=== PATIENT | female | born 1940 | race Caucasian/White ===

== ENCOUNTER → 2019-02-22 | Outpatient (CLI) | payer MEDICARE, OTHER ==
[~2019-02-22] MED LIST: ANTIVERT12.5 MG PO; ANTIVERT25 MG PO; ASPIR 8181 MG PO; ASPRIN PO; SYNTHROID0.125 MG PO; [UNRECOGNIZED DRUG - REMARK]
== END | disposition home or self-care (01) ==
LOC: RESCLI 02:05
DX: I48.20 Chronic atrial fibrillation, unspecified (principal); F32.9 Major depressive disorder, single episode, unspecified; E03.9 Hypothyroidism, unspecified; E11.630 Type 2 diabetes mellitus with periodontal disease; I10 Essential (primary) hypertension; I25.10 Atherosclerotic heart disease of native coronary artery without angina pectoris; Z79.899 Other long term (current) drug therapy

== ENCOUNTER 2019-05-16 19:22 | Emergency (ER) | payer MEDICARE, OTHER ==
[~2019-05-16] VITALS: Ht 167.6 cm; Wt 104.3 kg
== END 2019-05-16 22:30 | disposition home or self-care (01) ==
LOC: ED 19:22
DX: S20.212A Contusion of left front wall of thorax, initial encounter (principal); I10 Essential (primary) hypertension; I48.91 Unspecified atrial fibrillation; E07.9 Disorder of thyroid, unspecified; Z88.2 Allergy status to sulfonamides; Z79.82 Long term (current) use of aspirin; Z79.899 Other long term (current) drug therapy; V49.88XA Car occupant (driver) (passenger) injured in other specified transport accidents, initial encounter; Y93.89 Activity, other specified; Y92.488 Other paved roadways as the place of occurrence of the external cause; Y99.8 Other external cause status

== ENCOUNTER 2020-10-31 16:34 | Inpatient (IN) | payer MEDICARE, OTHER ==
[~2020-10-31] VITALS: Ht 165.1 cm; Wt 94.3 kg
[~2020-10-31 16:34] MED LIST changes: +CARDIZEM CD120 M2 PO; +GLUCOPHAGE500 M1 PO; +MAGNESIUM OXID400 MG PO; +TOPROL XL50 M1 PO; +XARELTO10 MG PO; +ZESTRIL2.5 MG PO
[2020-10-31 16:39] VITALS: BP 138/73
[2020-10-31 16:59] LABS: BASO # 0.1 10*3/uL (0.0-0.1); BASO % 0.4 % (0.0-1.0); EOS # 0.1 10*3/uL (0.0-0.4); EOS % 1.1 % (1.0-4.0); HEMATOCRIT 28.5 % (37.0-47.0); LYMPH # 1.5 10*3/uL (1.3-4.4); LYMPH % 12.9 % (27.0-41.0); MEAN CELL VOLUME 82.8 fl (81.0-99.0); MEAN CORPUSCULAR HGB 23.8 pg (27.0-31.0); MEAN CORPUSCULAR HGB CONC 28.8 g/dl (33.0-37.0); MONO # 0.8 10*3/uL (0.1-1.0); NEUT # 8.9 10*3/uL (2.3-7.9); NEUT % 78.2 % (47.0-73.0); PLATELET COUNT AUTOMATED 315 10*3/uL (130-400); RED BLOOD COUNT 3.44 10*6/uL (4.10-5.10); RED CELL DISTRI WIDTH 19.5 % (0-14.5); WHITE BLOOD COUNT 11.4 10*3/uL (4.8-10.8)
[2020-10-31 17:15] LABS: ALBUMIN 2.9 gm/dl (3.1-4.5); ALKALINE PHOSPHATASE 75 U/L (45-117); BUN 17 mg/dl (7-24); CHLORIDE 101 mmol/L (98-107); CREATININE 1.25 mg/dL (0.55-1.02); LIPASE 82 U/L (73-393); POTASSIUM 3.3 mmol/L (3.5-5.1); SGOT/AST 11 IU/L (3-35); SGPT/ALT 9 U/L (12-78); SODIUM 136 mmol/L (136-145); TOTAL PROTEIN 7.6 gm/dL (6.4-8.2)
[2020-10-31 17:18] LABS: TROPONIN I < 0.015 ng/ml (<0.045)
[2020-10-31 17:38] LABS: BILIRUBIN Negative (Negative); BLOOD Negative (Negative); CLARITY Clear (Clear); COLOR Yellow (Yellow); GLUCOSE Negative (Negative); KETONE Negative (Negative); LEUKO ESTERASE Trace (Negative); NITRITE Negative (Negative); PH 7.5 (4.5-8.0); UROBILINOGEN 0.2 E.U./dl (0.0-1.0)
[2020-10-31 17:55] LABS: HYALINE CAST 0-2
[2020-10-31 18:45] VITALS: BP 133/71
[2020-10-31] MEDS ORDERED: Magnesium Oxid400 MG PO (18:54)
[2020-10-31 20:00] VITALS: BP 122/51
[2020-11-01] VITALS: BP 128/68
[2020-11-01 06:03] LABS: ALBUMIN 2.7 gm/dl (3.1-4.5); BASO # 0.1 10*3/uL (0.0-0.1); BASO % 0.4 % (0.0-1.0); CREATININE 1.19 mg/dL (0.55-1.02); EOS # 0.2 10*3/uL (0.0-0.4); LYMPH # 2.3 10*3/uL (1.3-4.4); LYMPH % 20.8 % (27.0-41.0); MEAN CORPUSCULAR HGB CONC 29.2 g/dl (33.0-37.0); MEAN PLATELET VOLUME 10.5 fl (9.6-12.3); MONO # 0.9 10*3/uL (0.1-1.0); MONO % 7.6 % (3.0-9.0); NEUT # 7.7 10*3/uL (2.3-7.9); NEUT % 68.8 % (47.0-73.0); PLATELET COUNT AUTOMATED 303 10*3/uL (130-400); POTASSIUM 3.4 mmol/L (3.5-5.1); RED BLOOD COUNT 3.17 10*6/uL (4.10-5.10); RED CELL DISTRI WIDTH 19.7 % (0-14.5); WHITE BLOOD COUNT 11.2 10*3/uL (4.8-10.8)
[2020-11-01 06:06] LABS: INTERNATIONAL NORM RATIO 1.2 (2.0-3.5)
[2020-11-01 06:09] LABS: THYROID STIM HORMONE (HS) 1.22 uIU/ml (0.358-4.75)
[2020-11-01 08:00] VITALS: BP 118/72
[2020-11-01 12:00] VITALS: BP 112/73
[2020-11-01 16:05] VITALS: BP 119/55
[2020-11-01 20:00] VITALS: BP 125/55
[2020-11-02] VITALS: BP 143/63
[2020-11-02 06:05] LABS: BASO % 0.4 % (0.0-1.0); EOS # 0.3 10*3/uL (0.0-0.4); EOS % 2.7 % (1.0-4.0); HEMATOCRIT 25.3 % (37.0-47.0); LYMPH # 2.2 10*3/uL (1.3-4.4); LYMPH % 21.6 % (27.0-41.0); MEAN CELL VOLUME 82.1 fl (81.0-99.0); MEAN CORPUSCULAR HGB 23.7 pg (27.0-31.0); MEAN CORPUSCULAR HGB CONC 28.9 g/dl (33.0-37.0); MEAN PLATELET VOLUME 9.9 fl (9.6-12.3); MONO # 0.9 10*3/uL (0.1-1.0); MONO % 8.7 % (3.0-9.0); NEUT # 6.7 10*3/uL (2.3-7.9); NEUT % 66.3 % (47.0-73.0); PLATELET COUNT AUTOMATED 297 10*3/uL (130-400); RED BLOOD COUNT 3.08 10*6/uL (4.10-5.10); RED CELL DISTRI WIDTH 19.9 % (0-14.5); WHITE BLOOD COUNT 10.1 10*3/uL (4.8-10.8)
[2020-11-02 06:24] LABS: CREATININE 1.46 mg/dL (0.55-1.02); POTASSIUM 3.3 mmol/L (3.5-5.1)
[2020-11-02 08:00] VITALS: BP 144/72
[2020-11-02 12:00] VITALS: BP 100/65
[2020-11-02 16:00] VITALS: BP 117/51
[2020-11-02 20:00] VITALS: BP 117/52
[2020-11-03] VITALS: BP 141/58
[2020-11-03 06:09] LABS: BASO # 0.1 10*3/uL (0.0-0.1); BASO % 0.6 % (0.0-1.0); EOS # 0.4 10*3/uL (0.0-0.4); EOS % 3.1 % (1.0-4.0); HEMATOCRIT 27.8 % (37.0-47.0); LYMPH # 3.3 10*3/uL (1.3-4.4); LYMPH % 26.3 % (27.0-41.0); MEAN CELL VOLUME 82.2 fl (81.0-99.0); MEAN CORPUSCULAR HGB 23.7 pg (27.0-31.0); MEAN CORPUSCULAR HGB CONC 28.8 g/dl (33.0-37.0); MEAN PLATELET VOLUME 10.1 fl (9.6-12.3); MONO % 8.1 % (3.0-9.0); NEUT # 7.6 10*3/uL (2.3-7.9); NEUT % 61.3 % (47.0-73.0); PLATELET COUNT AUTOMATED 375 10*3/uL (130-400); RED BLOOD COUNT 3.38 10*6/uL (4.10-5.10); RED CELL DISTRI WIDTH 19.9 % (0-14.5); WHITE BLOOD COUNT 12.4 10*3/uL (4.8-10.8)
[2020-11-03 06:36] LABS: CREATININE 1.24 mg/dL (0.55-1.02); POTASSIUM 3.7 mmol/L (3.5-5.1)
[2020-11-03 08:00] VITALS: BP 127/59
[2020-11-03 12:00] VITALS: BP 122/60
[2020-11-03 16:00] VITALS: BP 99/69
[2020-11-03 20:00] VITALS: BP 131/63
[2020-11-04] VITALS: BP 123/66
[2020-11-04 06:09] LABS: CREATININE 1.1 mg/dL (0.55-1.02); POTASSIUM 4.1 mmol/L (3.5-5.1)
[2020-11-04 06:48] LABS: BASO # 0.1 10*3/uL (0.0-0.1); BASO % 0.5 % (0.0-1.0); EOS # 0.3 10*3/uL (0.0-0.4); EOS % 3.2 % (1.0-4.0); HEMATOCRIT 25.9 % (37.0-47.0); LYMPH # 2.4 10*3/uL (1.3-4.4); LYMPH % 22.5 % (27.0-41.0); MEAN CELL VOLUME 82.7 fl (81.0-99.0); MEAN CORPUSCULAR HGB 23.6 pg (27.0-31.0); MEAN CORPUSCULAR HGB CONC 28.6 g/dl (33.0-37.0); MEAN PLATELET VOLUME 10.1 fl (9.6-12.3); NEUT # 6.8 10*3/uL (2.3-7.9); NEUT % 64.3 % (47.0-73.0); PLATELET COUNT AUTOMATED 354 10*3/uL (130-400); RED BLOOD COUNT 3.13 10*6/uL (4.10-5.10); RED CELL DISTRI WIDTH 20.1 % (0-14.5); WHITE BLOOD COUNT 10.5 10*3/uL (4.8-10.8)
[2020-11-04 08:00] VITALS: BP 110/70
[2020-11-04] MEDS ORDERED: XARELTO15 M1 PO (11:11)
[2020-11-04] MEDS ORDERED: LASIX40 MG PO (11:11)
[2020-11-04] MEDS ORDERED: GOOD NEIGHBOR M25 M1 PO (11:12)
[2020-11-04 12:00] VITALS: BP 106/56
== END 2020-11-04 14:37 | DRG 291 ==
LOC: ED 16:34 → 5E 17:36 → EDHOLD 17:36 → 5E 18:29
PROVIDERS: Emergency Medicine; Hospitalist; Student in an Organized Health Care Education/Training Program; ADMIT Internal Medicine; ATTEND Internal Medicine
DX: I50.33 Acute on chronic diastolic (congestive) heart failure (principal); J96.22 Acute and chronic respiratory failure with hypercapnia; J96.21 Acute and chronic respiratory failure with hypoxia; E44.0 Moderate protein-calorie malnutrition; N17.9 Acute kidney failure, unspecified; N18.32 Chronic kidney disease, stage 3b; D50.9 Iron deficiency anemia, unspecified; I48.0 Paroxysmal atrial fibrillation; E03.9 Hypothyroidism, unspecified; Z20.822 Contact with and (suspected) exposure to COVID-19; Z68.34 Body mass index [BMI] 34.0-34.9, adult; E87.6 Hypokalemia; E11.22 Type 2 diabetes mellitus with diabetic chronic kidney disease; F41.9 Anxiety disorder, unspecified; Z88.2 Allergy status to sulfonamides; Z79.899 Other long term (current) drug therapy; Z79.82 Long term (current) use of aspirin; Z90.710 Acquired absence of both cervix and uterus; Z90.49 Acquired absence of other specified parts of digestive tract; Z87.891 Personal history of nicotine dependence; Z80.1 Family history of malignant neoplasm of trachea, bronchus and lung; Z82.49 Family history of ischemic heart disease and other diseases of the circulatory system; E11.65 Type 2 diabetes mellitus with hyperglycemia

== ENCOUNTER → 2020-11-13 | Outpatient (CLI) | payer MEDICARE, OTHER ==
[~2020-11-13] MED LIST changes: +GOOD NEIGHBOR M25 M1 PO; +LASIX40 MG PO; +Magnesium Oxid400 MG PO; +XARELTO15 M1 PO
[2020-11-13 08:49] VITALS: BP 87/37
[2020-11-13 09:24] VITALS: BP 90/44
[2020-11-13 10:01] VITALS: BP 88/43
[2020-11-13 10:46] VITALS: BP 102/55
[2020-11-13 11:46] VITALS: BP 90/38
[2020-11-13 12:25] VITALS: BP 92/46
== END | disposition home or self-care (01) ==
LOC: TRNFUSION 01:02
PROVIDERS: ATTEND Student in an Organized Health Care Education/Training Program
DX: D64.9 Anemia, unspecified (principal); E07.9 Disorder of thyroid, unspecified; I10 Essential (primary) hypertension; E11.9 Type 2 diabetes mellitus without complications; I48.91 Unspecified atrial fibrillation; Z87.891 Personal history of nicotine dependence

== ENCOUNTER → 2020-11-18 | Outpatient (CLI) | payer MEDICARE, OTHER ==
[2020-11-18] VITALS (7 sets, daily range): BP systolic 96–123; BP diastolic 36–68
== END | disposition home or self-care (01) ==
LOC: TRNFUSION 13:07
PROVIDERS: ATTEND Internal Medicine
DX: D64.9 Anemia, unspecified (principal); I48.91 Unspecified atrial fibrillation; E03.9 Hypothyroidism, unspecified; F41.9 Anxiety disorder, unspecified; I13.0 Hypertensive heart and chronic kidney disease with heart failure and stage 1 through stage 4 chronic kidney disease, or unspecified chronic kidney disease; E11.22 Type 2 diabetes mellitus with diabetic chronic kidney disease; I50.33 Acute on chronic diastolic (congestive) heart failure; N18.30 Chronic kidney disease, stage 3 unspecified; Z87.891 Personal history of nicotine dependence

== ENCOUNTER → 2020-12-09 | Day surgery (SDC) | payer MEDICARE, OTHER ==
[~2020-12-09] VITALS: Ht 165.1 cm; Wt 95.3 kg
[2020-12-09 08:37] VITALS: BP 134/66
[2020-12-09 09:23] VITALS: BP 86/41
[2020-12-09 09:38] VITALS: BP 106/52
[2020-12-09 09:58] VITALS: BP 106/50
== END | disposition home or self-care (01) ==
LOC: SDC 12-05 08:45
PROVIDERS: ATTEND Surgery
DX: K62.5 Hemorrhage of anus and rectum (principal); D12.2 Benign neoplasm of ascending colon; D12.8 Benign neoplasm of rectum; K57.30 Diverticulosis of large intestine without perforation or abscess without bleeding; K29.50 Unspecified chronic gastritis without bleeding; D64.9 Anemia, unspecified; I12.9 Hypertensive chronic kidney disease with stage 1 through stage 4 chronic kidney disease, or unspecified chronic kidney disease; E11.22 Type 2 diabetes mellitus with diabetic chronic kidney disease; N18.30 Chronic kidney disease, stage 3 unspecified; I25.10 Atherosclerotic heart disease of native coronary artery without angina pectoris; I48.91 Unspecified atrial fibrillation; F41.9 Anxiety disorder, unspecified; Z88.2 Allergy status to sulfonamides; F32.9 Major depressive disorder, single episode, unspecified; E03.9 Hypothyroidism, unspecified; Z90.89 Acquired absence of other organs; Z98.890 Other specified postprocedural states; Z79.899 Other long term (current) drug therapy

== ENCOUNTER → 2021-02-25 | Outpatient (CLI) | payer MEDICARE, OTHER ==
[2021-02-24 16:54] LABS: HEMATOCRIT 23.2 % (37.0-47.0); MEAN CELL VOLUME 96.7 fl (81.0-99.0); MEAN CORPUSCULAR HGB 29.6 pg (27.0-31.0); MEAN CORPUSCULAR HGB CONC 30.6 g/dl (33.0-37.0); MEAN PLATELET VOLUME 9.1 fl (9.6-12.3); RED BLOOD COUNT 2.4 10*6/uL (4.10-5.10); RED CELL DISTRI WIDTH 13.7 % (0-14.5); WHITE BLOOD COUNT 10.4 10*3/uL (4.8-10.8)
[2021-02-25] VITALS (11 sets, daily range): BP systolic 99–116; BP diastolic 42–67
== END | disposition home or self-care (01) ==
LOC: TRNFUSION 01:21
PROVIDERS: ATTEND Family Medicine
DX: D50.8 Other iron deficiency anemias (principal); K92.9 Disease of digestive system, unspecified; I10 Essential (primary) hypertension; J44.9 Chronic obstructive pulmonary disease, unspecified; E07.9 Disorder of thyroid, unspecified; F32.9 Major depressive disorder, single episode, unspecified; I25.10 Atherosclerotic heart disease of native coronary artery without angina pectoris; I48.91 Unspecified atrial fibrillation

== ENCOUNTER → 2021-03-07 | Outpatient (CLI) | payer MEDICARE, OTHER ==
[2021-03-07 17:19] LABS: FREE T4 0.59 ng/dl (0.76-1.46)
== END | disposition home or self-care (01) ==
LOC: RESCLI 02:33
PROVIDERS: Internal Medicine; ATTEND Internal Medicine
DX: I48.91 Unspecified atrial fibrillation (principal); I11.0 Hypertensive heart disease with heart failure; I50.30 Unspecified diastolic (congestive) heart failure; E03.9 Hypothyroidism, unspecified; K57.30 Diverticulosis of large intestine without perforation or abscess without bleeding; D50.0 Iron deficiency anemia secondary to blood loss (chronic); Z79.899 Other long term (current) drug therapy

== ENCOUNTER 2021-09-02 13:00 | Inpatient (IN) | payer MEDICARE, OTHER ==
[2021-09-02] VITALS (22 sets, daily range): BP systolic 110–153; BP diastolic 35–96
[~2021-09-02] VITALS: Ht 165.1 cm; Wt 98.9 kg
[~2021-09-02 13:00] MED LIST changes: +Carafate1 GM PO; +PROTONIX40 MG PO; +TYLENOL EXTRA500 MG PO
[2021-09-02 13:32] LABS: MEAN CELL VOLUME 75.1 fl (81.0-99.0); MEAN CORPUSCULAR HGB 20.4 pg (27.0-31.0); MEAN CORPUSCULAR HGB CONC 27.1 g/dl (33.0-37.0); MEAN PLATELET VOLUME 9.6 fl (9.6-12.3); NUCLEATED RED BLOOD CELL 0.4 % (0.0-0.0); PLATELET COUNT AUTOMATED 261 10*3/uL (130-400); RED BLOOD COUNT 2.65 10*6/uL (4.10-5.10); RED CELL DISTRI WIDTH 19.8 % (0-14.5); WHITE BLOOD COUNT 8.4 10*3/uL (4.8-10.8)
[2021-09-02 13:33] LABS: MANUAL DIFF REFLEX YES
[2021-09-02 13:35] LABS: HEMATOCRIT 19.9 % (37.0-47.0)
[2021-09-02 13:41] LABS: ACT PARTIAL THROMBO TIME 23.6 SECONDS (20.0-32.1); INTERNATIONAL NORM RATIO 1.1 (2.0-3.5)
[2021-09-02 13:50] LABS: MICROCYTOSIS SLIGHT; OVALOCYTES FEW; PLATELET SUFFICIENCY NORMAL (NORMAL); POLYCHROMASIA SLIGHT; TOTAL CELLS COUNTED 100 #CELLS
[2021-09-02 13:51] LABS: SCHISTOCYTES FEW; TARGET CELLS FEW
[2021-09-02 13:53] LABS: CREATININE 1.49 mg/dL (0.55-1.02); POTASSIUM 3.9 mmol/L (3.5-5.1); TOTAL PROTEIN 7.3 gm/dL (6.4-8.2)
[2021-09-02] MEDS ORDERED: LASIX20 MG PO (18:00)
[2021-09-02] MEDS ORDERED: SYNTHROID137 MCG PO (18:01)
[2021-09-02] MEDS ORDERED: VITAMIN D31250 MCG PO (18:03)
[2021-09-02] MEDS ORDERED: CARAFATE1 G1 PO (18:03)
[2021-09-03] VITALS (9 sets, daily range): BP systolic 107–134; BP diastolic 40–86
[2021-09-03 00:50] LABS: BASO # 0.1 10*3/uL (0.0-0.1); BASO % 0.6 % (0.0-1.0); EOS # 0.2 10*3/uL (0.0-0.4); HEMATOCRIT 25.5 % (37.0-47.0); LYMPH # 1.6 10*3/uL (1.3-4.4); LYMPH % 14.8 % (27.0-41.0); MEAN CORPUSCULAR HGB 22.1 pg (27.0-31.0); MEAN CORPUSCULAR HGB CONC 29.4 g/dl (33.0-37.0); MEAN PLATELET VOLUME 9.5 fl (9.6-12.3); MONO # 1.5 10*3/uL (0.1-1.0); MONO % 13.9 % (3.0-9.0); NEUT # 7.2 10*3/uL (2.3-7.9); NEUT % 67.9 % (47.0-73.0); NUCLEATED RED BLOOD CELL 0.3 % (0.0-0.0); PLATELET COUNT AUTOMATED 241 10*3/uL (130-400); WHITE BLOOD COUNT 10.6 10*3/uL (4.8-10.8)
[2021-09-03 05:38] LABS: CREATININE 1.33 mg/dL (0.55-1.02); POTASSIUM 3.5 mmol/L (3.5-5.1); TOTAL PROTEIN 7.3 gm/dL (6.4-8.2)
[2021-09-03 05:53] LABS: THYROID STIM HORMONE (HS) 0.668 uIU/ml (0.358-4.75)
[2021-09-03 06:46] LABS: ACT PARTIAL THROMBO TIME 25.1 SECONDS (20.0-32.1); INTERNATIONAL NORM RATIO 1.1 (2.0-3.5)
[2021-09-03 06:54] LABS: BASO # 0.1 10*3/uL (0.0-0.1); BASO % 0.5 % (0.0-1.0); EOS # 0.3 10*3/uL (0.0-0.4); HEMATOCRIT 26.7 % (37.0-47.0); LYMPH # 2.1 10*3/uL (1.3-4.4); LYMPH % 20.2 % (27.0-41.0); MEAN CELL VOLUME 75.9 fl (81.0-99.0); MEAN CORPUSCULAR HGB 21.6 pg (27.0-31.0); MEAN CORPUSCULAR HGB CONC 28.5 g/dl (33.0-37.0); MEAN PLATELET VOLUME 10.1 fl (9.6-12.3); MONO # 1.2 10*3/uL (0.1-1.0); NEUT # 6.8 10*3/uL (2.3-7.9); NEUT % 64.4 % (47.0-73.0); NUCLEATED RED BLOOD CELL 0.4 % (0.0-0.0); PLATELET COUNT AUTOMATED 259 10*3/uL (130-400); RED BLOOD COUNT 3.52 10*6/uL (4.10-5.10); WHITE BLOOD COUNT 10.6 10*3/uL (4.8-10.8)
[2021-09-03 17:39] LABS: BASO % 0.4 % (0.0-1.0); EOS # 0.3 10*3/uL (0.0-0.4); EOS % 3.3 % (1.0-4.0); HEMATOCRIT 26.3 % (37.0-47.0); LYMPH # 1.1 10*3/uL (1.3-4.4); LYMPH % 12.2 % (27.0-41.0); MEAN CELL VOLUME 76.2 fl (81.0-99.0); MEAN CORPUSCULAR HGB CONC 28.9 g/dl (33.0-37.0); MEAN PLATELET VOLUME 9.4 fl (9.6-12.3); MONO # 0.9 10*3/uL (0.1-1.0); MONO % 9.9 % (3.0-9.0); NEUT # 6.6 10*3/uL (2.3-7.9); NEUT % 73.8 % (47.0-73.0); NUCLEATED RED BLOOD CELL 0.3 % (0.0-0.0); PLATELET COUNT AUTOMATED 241 10*3/uL (130-400); RED BLOOD COUNT 3.45 10*6/uL (4.10-5.10); RED CELL DISTRI WIDTH 19.3 % (0-14.5)
[2021-09-04] VITALS (17 sets, daily range): BP systolic 77–134; BP diastolic 45–71
[2021-09-04 05:52] LABS: CREATININE 1.26 mg/dL (0.55-1.02); POTASSIUM 2.8 mmol/L (3.5-5.1)
[2021-09-04 06:00] LABS: BASO % 0.4 % (0.0-1.0); EOS # 0.4 10*3/uL (0.0-0.4); EOS % 4.1 % (1.0-4.0); HEMATOCRIT 25.4 % (37.0-47.0); LYMPH # 1.6 10*3/uL (1.3-4.4); LYMPH % 17.4 % (27.0-41.0); MEAN CELL VOLUME 75.8 fl (81.0-99.0); MEAN CORPUSCULAR HGB 21.5 pg (27.0-31.0); MEAN CORPUSCULAR HGB CONC 28.3 g/dl (33.0-37.0); MEAN PLATELET VOLUME 9.8 fl (9.6-12.3); MONO % 10.9 % (3.0-9.0); NEUT # 6.1 10*3/uL (2.3-7.9); NEUT % 66.7 % (47.0-73.0); NUCLEATED RED BLOOD CELL 0.2 % (0.0-0.0); PLATELET COUNT AUTOMATED 252 10*3/uL (130-400); RED BLOOD COUNT 3.35 10*6/uL (4.10-5.10); RED CELL DISTRI WIDTH 19.9 % (0-14.5); WHITE BLOOD COUNT 9.2 10*3/uL (4.8-10.8)
[2021-09-04 16:05] LABS: CREATININE 1.62 mg/dL (0.55-1.02); POTASSIUM 3.3 mmol/L (3.5-5.1)
[2021-09-04 16:30] LABS: BASO % 0.2 % (0.0-1.0); EOS # 0.1 10*3/uL (0.0-0.4); EOS % 0.5 % (1.0-4.0); HEMATOCRIT 31.8 % (37.0-47.0); LYMPH # 0.9 10*3/uL (1.3-4.4); LYMPH % 5.9 % (27.0-41.0); MEAN CORPUSCULAR HGB 22.9 pg (27.0-31.0); MEAN CORPUSCULAR HGB CONC 28.9 g/dl (33.0-37.0); MEAN PLATELET VOLUME 9.6 fl (9.6-12.3); MONO # 1.1 10*3/uL (0.1-1.0); MONO % 7.5 % (3.0-9.0); NEUT # 12.4 10*3/uL (2.3-7.9); NEUT % 85.3 % (47.0-73.0); PLATELET COUNT AUTOMATED 261 10*3/uL (130-400); RED BLOOD COUNT 4.02 10*6/uL (4.10-5.10); RED CELL DISTRI WIDTH 20.1 % (0-14.5); WHITE BLOOD COUNT 14.5 10*3/uL (4.8-10.8)
[2021-09-04 16:41] LABS: MEAN CELL VOLUME 79.1 fl (81.0-99.0)
[2021-09-04 16:56] LABS: CREATININE 1.64 mg/dL (0.55-1.02); POTASSIUM 3.5 mmol/L (3.5-5.1)
[2021-09-05] VITALS (9 sets, daily range): BP systolic 93–131; BP diastolic 44–57
[2021-09-05 05:42] LABS: CREATININE 2.12 mg/dL (0.55-1.02); POTASSIUM 3.5 mmol/L (3.5-5.1)
[2021-09-05 06:06] LABS: BASO % 0.2 % (0.0-1.0); EOS # 0.1 10*3/uL (0.0-0.4); EOS % 0.5 % (1.0-4.0); HEMATOCRIT 29.8 % (37.0-47.0); LYMPH # 1.2 10*3/uL (1.3-4.4); LYMPH % 7.7 % (27.0-41.0); MEAN CELL VOLUME 80.3 fl (81.0-99.0); MEAN CORPUSCULAR HGB 23.2 pg (27.0-31.0); MEAN CORPUSCULAR HGB CONC 28.9 g/dl (33.0-37.0); MEAN PLATELET VOLUME 10.4 fl (9.6-12.3); MONO # 1.5 10*3/uL (0.1-1.0); MONO % 9.7 % (3.0-9.0); NEUT # 12.1 10*3/uL (2.3-7.9); NEUT % 81.2 % (47.0-73.0); PLATELET COUNT AUTOMATED 201 10*3/uL (130-400); RED BLOOD COUNT 3.71 10*6/uL (4.10-5.10); RED CELL DISTRI WIDTH 20.6 % (0-14.5)
[2021-09-06] VITALS: BP 121/91
[2021-09-06 06:36] LABS: POTASSIUM 3.8 mmol/L (3.5-5.1)
[2021-09-06 06:39] LABS: CREATININE 1.89 mg/dL (0.55-1.02)
[2021-09-06 07:03] LABS: HEMATOCRIT 28.5 % (37.0-47.0); MEAN CELL VOLUME 80.3 fl (81.0-99.0); MEAN CORPUSCULAR HGB 22.8 pg (27.0-31.0); MEAN CORPUSCULAR HGB CONC 28.4 g/dl (33.0-37.0); MEAN PLATELET VOLUME 9.4 fl (9.6-12.3); PLATELET COUNT AUTOMATED 222 10*3/uL (130-400); RED BLOOD COUNT 3.55 10*6/uL (4.10-5.10); RED CELL DISTRI WIDTH 21.8 % (0-14.5); WHITE BLOOD COUNT 15.6 10*3/uL (4.8-10.8)
[2021-09-06 07:06] LABS: MANUAL DIFF REFLEX YES
[2021-09-06 07:35] LABS: BASOPHILS 1 % (0-1); PLATELET SUFFICIENCY NORMAL (NORMAL); POLYCHROMASIA SLIGHT; ROULEAUX SLIGHT; TOTAL CELLS COUNTED 100 #CELLS
[2021-09-06 07:36] LABS: MICROCYTOSIS SLIGHT; OVALOCYTES FEW; TARGET CELLS FEW
[2021-09-06 08:00] VITALS: BP 100/58
[2021-09-06 12:00] VITALS: BP 102/57
[2021-09-06 16:00] VITALS: BP 101/53
[2021-09-06 20:00] VITALS: BP 116/46
[2021-09-07] VITALS: BP 120/46
[2021-09-07 05:58] LABS: CREATININE 1.74 mg/dL (0.55-1.02); POTASSIUM 3.4 mmol/L (3.5-5.1)
[2021-09-07 06:34] LABS: BASO % 0.2 % (0.0-1.0); EOS # 0.3 10*3/uL (0.0-0.4); HEMATOCRIT 28.5 % (37.0-47.0); LYMPH # 1.8 10*3/uL (1.3-4.4); LYMPH % 14.1 % (27.0-41.0); MEAN CELL VOLUME 79.2 fl (81.0-99.0); MEAN CORPUSCULAR HGB 23.1 pg (27.0-31.0); MEAN CORPUSCULAR HGB CONC 29.1 g/dl (33.0-37.0); MEAN PLATELET VOLUME 9.7 fl (9.6-12.3); MONO # 1.2 10*3/uL (0.1-1.0); MONO % 9.6 % (3.0-9.0); NEUT # 9.3 10*3/uL (2.3-7.9); NEUT % 73.5 % (47.0-73.0); PLATELET COUNT AUTOMATED 263 10*3/uL (130-400); RED CELL DISTRI WIDTH 22.5 % (0-14.5); WHITE BLOOD COUNT 12.7 10*3/uL (4.8-10.8)
[2021-09-07 08:00] VITALS: BP 104/40
[2021-09-07 12:00] VITALS: BP 98/57
[2021-09-07 16:00] VITALS: BP 98/40
[2021-09-07 20:00] VITALS: BP 104/49
[2021-09-08] VITALS: BP 108/57
[2021-09-08 05:26] LABS: CREATININE 1.38 mg/dL (0.55-1.02); POTASSIUM 3.8 mmol/L (3.5-5.1)
[2021-09-08 06:41] LABS: BASO % 0.3 % (0.0-1.0); EOS # 0.4 10*3/uL (0.0-0.4); EOS % 3.2 % (1.0-4.0); LYMPH # 1.3 10*3/uL (1.3-4.4); LYMPH % 11.2 % (27.0-41.0); MEAN CELL VOLUME 81.2 fl (81.0-99.0); MEAN CORPUSCULAR HGB 23.3 pg (27.0-31.0); MEAN CORPUSCULAR HGB CONC 28.7 g/dl (33.0-37.0); MEAN PLATELET VOLUME 9.9 fl (9.6-12.3); MONO # 1.3 10*3/uL (0.1-1.0); MONO % 11.4 % (3.0-9.0); NEUT # 8.6 10*3/uL (2.3-7.9); NEUT % 73.2 % (47.0-73.0); PLATELET COUNT AUTOMATED 315 10*3/uL (130-400); RED BLOOD COUNT 3.82 10*6/uL (4.10-5.10); WHITE BLOOD COUNT 11.7 10*3/uL (4.8-10.8)
[2021-09-08 12:00] VITALS: BP 124/57
[2021-09-08 16:00] VITALS: BP 94/64
[2021-09-08 20:00] VITALS: BP 131/52
[2021-09-09] VITALS (65 sets, daily range): BP systolic 70–131; BP diastolic 29–70
[2021-09-09 05:24] LABS: CREATININE 1.59 mg/dL (0.55-1.02); POTASSIUM 3.6 mmol/L (3.5-5.1)
[2021-09-09 05:55] LABS: HEMATOCRIT 35.2 % (37.0-47.0); MEAN CELL VOLUME 79.3 fl (81.0-99.0); MEAN CORPUSCULAR HGB 22.5 pg (27.0-31.0); MEAN CORPUSCULAR HGB CONC 28.4 g/dl (33.0-37.0); MEAN PLATELET VOLUME 9.9 fl (9.6-12.3); PLATELET COUNT AUTOMATED 379 10*3/uL (130-400); RED BLOOD COUNT 4.44 10*6/uL (4.10-5.10); RED CELL DISTRI WIDTH 23.8 % (0-14.5); WHITE BLOOD COUNT 7.1 10*3/uL (4.8-10.8)
[2021-09-09 06:08] LABS: MANUAL DIFF REFLEX YES
[2021-09-09 06:31] LABS: TOTAL CELLS COUNTED 100 #CELLS
[2021-09-09 06:32] LABS: MICROCYTOSIS SLIGHT; OVALOCYTES FEW; PLATELET SUFFICIENCY NORMAL (NORMAL)
[2021-09-09 07:17] LABS: ABG BASE EXCESS 1.4 mmol/L (-2.0-2.0); ARTERIAL BLOOD GAS PH 7.394 (7.35-7.45); ARTERIAL BLOOD GAS PO2 178.6 (80-90)
[2021-09-09 08:46] LABS: BILIRUBIN Negative (Negative); BLOOD Negative (Negative); CLARITY Clear (Clear); COLOR Yellow (Yellow); GLUCOSE Negative (Negative); KETONE Negative (Negative); LEUKO ESTERASE Negative (Negative); NITRITE Negative (Negative); PH 5.5 (4.5-8.0); SPECIFIC GRAVITY 1.015 (1.001-1.030)
[2021-09-09 08:55] LABS: BACTERIA 1+; RBC 0-2 rbc/hpf (0-2)
[2021-09-09 13:03] LABS: ABG BASE EXCESS 0.1 mmol/L (-2.0-2.0); ARTERIAL BLOOD GAS PH 7.348 (7.35-7.45); ARTERIAL BLOOD GAS PO2 45.4 (80-90)
[2021-09-10] VITALS (94 sets, daily range): BP systolic 64–153; BP diastolic 23–63
[2021-09-10 05:17] LABS: CREATININE 1.63 mg/dL (0.55-1.02); POTASSIUM 2.9 mmol/L (3.5-5.1)
[2021-09-10 06:10] LABS: HEMATOCRIT 29.3 % (37.0-47.0); MEAN CELL VOLUME 79.2 fl (81.0-99.0); MEAN PLATELET VOLUME 10.3 fl (9.6-12.3); PLATELET COUNT AUTOMATED 437 10*3/uL (130-400); RED CELL DISTRI WIDTH 23.4 % (0-14.5); WHITE BLOOD COUNT 19.5 10*3/uL (4.8-10.8)
[2021-09-10 06:27] LABS: MANUAL DIFF REFLEX YES
[2021-09-10 07:24] LABS: DOHLE BODIES FEW; POLYCHROMASIA SLIGHT; TOTAL CELLS COUNTED 100 #CELLS; TOXIC GRANULATION SLIGHT
[2021-09-10 07:25] LABS: BURR CELLS FEW; PLATELET SUFFICIENCY HIGH (NORMAL); SCHISTOCYTES FEW; TARGET CELLS FEW
[2021-09-10 09:03] LABS: ABG BASE EXCESS 3.2 mmol/L (-2.0-2.0); ARTERIAL BLOOD GAS PH 7.408 (7.35-7.45); ARTERIAL BLOOD GAS PO2 106.4 (80-90)
[2021-09-11] VITALS (65 sets, daily range): BP systolic 93–143; BP diastolic 30–75
[2021-09-11 05:21] LABS: CREATININE 1.17 mg/dL (0.55-1.02); POTASSIUM 2.9 mmol/L (3.5-5.1)
[2021-09-11 07:09] LABS: HEMATOCRIT 28.7 % (37.0-47.0); MEAN CORPUSCULAR HGB 23.1 pg (27.0-31.0); MEAN CORPUSCULAR HGB CONC 27.9 g/dl (33.0-37.0); MEAN PLATELET VOLUME 10.3 fl (9.6-12.3); NUCLEATED RED BLOOD CELL 0.2 % (0.0-0.0); PLATELET COUNT AUTOMATED 384 10*3/uL (130-400); RED BLOOD COUNT 3.46 10*6/uL (4.10-5.10); RED CELL DISTRI WIDTH 22.8 % (0-14.5); WHITE BLOOD COUNT 22.3 10*3/uL (4.8-10.8)
[2021-09-11 07:19] LABS: MEAN CELL VOLUME 82.9 fl (81.0-99.0)
[2021-09-11 07:21] LABS: MANUAL DIFF REFLEX YES
[2021-09-11 07:47] LABS: BURR CELLS FEW; OVALOCYTES FEW; PLATELET SUFFICIENCY NORMAL (NORMAL); POLYCHROMASIA SLIGHT; SCHISTOCYTES FEW; TOTAL CELLS COUNTED 100 #CELLS; TOXIC GRANULATION SLIGHT
[2021-09-12] VITALS: BP 117/51
[2021-09-12 04:00] VITALS: BP 124/49
[2021-09-12 04:56] LABS: ALKALINE PHOSPHATASE 55 U/L (45-117); BUN 9 mg/dl (7-24); CHLORIDE 109 mmol/L (98-107); CREATININE 1.05 mg/dL (0.55-1.02); SGOT/AST 11 IU/L (3-35); SGPT/ALT 10 U/L (12-78); SODIUM 141 mmol/L (136-145); TOTAL PROTEIN 5.5 gm/dL (6.4-8.2)
[2021-09-12 06:35] LABS: MEAN CELL VOLUME 81.5 fl (81.0-99.0); MEAN CORPUSCULAR HGB 22.8 pg (27.0-31.0); MEAN CORPUSCULAR HGB CONC 27.9 g/dl (33.0-37.0); MEAN PLATELET VOLUME 10.3 fl (9.6-12.3); NUCLEATED RED BLOOD CELL 0.2 % (0.0-0.0); PLATELET COUNT AUTOMATED 354 10*3/uL (130-400); RED BLOOD COUNT 3.56 10*6/uL (4.10-5.10); RED CELL DISTRI WIDTH 22.9 % (0-14.5); WHITE BLOOD COUNT 17.8 10*3/uL (4.8-10.8)
[2021-09-12 06:37] LABS: MANUAL DIFF REFLEX YES
[2021-09-12 07:05] LABS: ATYPICAL LYMPHS 1 % (0-0); BASOPHILS 1 % (0-1); BURR CELLS FEW; OVALOCYTES FEW; POLYCHROMASIA SLIGHT; TARGET CELLS FEW; TOTAL CELLS COUNTED 100 #CELLS
[2021-09-12 07:06] LABS: PLATELET SUFFICIENCY NORMAL (NORMAL); TOXIC GRANULATION SLIGHT
[2021-09-12 08:00] VITALS: BP 140/54
[2021-09-12 12:00] VITALS: BP 116/44
[2021-09-12 16:00] VITALS: BP 130/50
[2021-09-12 20:00] VITALS: BP 153/52
[2021-09-13] VITALS (7 sets, daily range): BP systolic 134–151; BP diastolic 60–80
[2021-09-13 05:07] LABS: ALKALINE PHOSPHATASE 57 U/L (45-117); BUN 7 mg/dl (7-24); CHLORIDE 108 mmol/L (98-107); CREATININE 1.05 mg/dL (0.55-1.02); POTASSIUM 3.5 mmol/L (3.5-5.1); SGOT/AST 8 IU/L (3-35); SGPT/ALT 8 U/L (12-78); SODIUM 141 mmol/L (136-145); TOTAL PROTEIN 5.8 gm/dL (6.4-8.2)
[2021-09-13 06:22] LABS: HEMATOCRIT 30.9 % (37.0-47.0); MEAN CELL VOLUME 81.5 fl (81.0-99.0); MEAN CORPUSCULAR HGB 23.5 pg (27.0-31.0); MEAN CORPUSCULAR HGB CONC 28.8 g/dl (33.0-37.0); MEAN PLATELET VOLUME 9.7 fl (9.6-12.3); PLATELET COUNT AUTOMATED 460 10*3/uL (130-400); RED BLOOD COUNT 3.79 10*6/uL (4.10-5.10); RED CELL DISTRI WIDTH 23.6 % (0-14.5); WHITE BLOOD COUNT 14.5 10*3/uL (4.8-10.8)
[2021-09-13 06:23] LABS: MANUAL DIFF REFLEX YES
[2021-09-13 07:43] LABS: BASOPHILS 1 % (0-1); MICROCYTOSIS SLIGHT; PLATELET SUFFICIENCY HIGH (NORMAL); TOTAL CELLS COUNTED 100 #CELLS
[2021-09-13 07:44] LABS: POLYCHROMASIA SLIGHT; SCHISTOCYTES FEW
[2021-09-14] VITALS: BP 140/61
[2021-09-14 06:15] LABS: ALKALINE PHOSPHATASE 52 U/L (45-117); BUN 7 mg/dl (7-24); CHLORIDE 107 mmol/L (98-107); CREATININE 1.04 mg/dL (0.55-1.02); POTASSIUM 3.5 mmol/L (3.5-5.1); SGOT/AST 15 IU/L (3-35); SGPT/ALT 8 U/L (12-78); SODIUM 141 mmol/L (136-145)
[2021-09-14 06:30] LABS: HEMATOCRIT 29.4 % (37.0-47.0); MANUAL DIFF REFLEX YES; MEAN CELL VOLUME 79.2 fl (81.0-99.0); MEAN CORPUSCULAR HGB 22.9 pg (27.0-31.0); MEAN CORPUSCULAR HGB CONC 28.9 g/dl (33.0-37.0); PLATELET COUNT AUTOMATED 491 10*3/uL (130-400); RED BLOOD COUNT 3.71 10*6/uL (4.10-5.10); RED CELL DISTRI WIDTH 23.7 % (0-14.5)
[2021-09-14 07:26] LABS: MICROCYTOSIS SLIGHT; PLATELET SUFFICIENCY HIGH (NORMAL); TOTAL CELLS COUNTED 100 #CELLS
[2021-09-14 07:27] LABS: ACANTHOCYTES FEW; BURR CELLS MODERATE; OVALOCYTES FEW; POLYCHROMASIA SLIGHT; ROULEAUX SLIGHT; SCHISTOCYTES MODERATE
[2021-09-14 08:00] VITALS: BP 135/74
[2021-09-14 12:00] VITALS: BP 120/55
[2021-09-14 16:00] VITALS: BP 136/68
[2021-09-14 20:00] VITALS: BP 129/45
[2021-09-15] VITALS: BP 133/53
[2021-09-15 05:27] LABS: BUN 7 mg/dl (7-24); CHLORIDE 109 mmol/L (98-107); CREATININE 0.99 mg/dL (0.55-1.02); POTASSIUM 3.3 mmol/L (3.5-5.1); SODIUM 139 mmol/L (136-145)
[2021-09-15 06:10] LABS: HEMATOCRIT 29.2 % (37.0-47.0); MEAN CELL VOLUME 77.5 fl (81.0-99.0); MEAN CORPUSCULAR HGB 22.5 pg (27.0-31.0); MEAN CORPUSCULAR HGB CONC 29.1 g/dl (33.0-37.0); MEAN PLATELET VOLUME 9.9 fl (9.6-12.3); PLATELET COUNT AUTOMATED 525 10*3/uL (130-400); RED BLOOD COUNT 3.77 10*6/uL (4.10-5.10); RED CELL DISTRI WIDTH 24.4 % (0-14.5); WHITE BLOOD COUNT 11.8 10*3/uL (4.8-10.8)
[2021-09-15 06:15] LABS: MANUAL DIFF REFLEX YES
[2021-09-15 07:14] LABS: MICROCYTOSIS SLIGHT; POLYCHROMASIA SLIGHT; TOTAL CELLS COUNTED 100 #CELLS; TOXIC GRANULATION SLIGHT
[2021-09-15 07:15] LABS: BURR CELLS FEW; OVALOCYTES FEW; PLATELET SUFFICIENCY HIGH (NORMAL); ROULEAUX SLIGHT; TARGET CELLS FEW
[2021-09-15 08:00] VITALS: BP 119/52
[2021-09-15 11:46] VITALS: BP 113/77
[2021-09-15] MEDS ORDERED: VANCOMYCIN HCL125 MG PO (13:33)
[2021-09-15] MEDS ORDERED: K-TAB20 MEQ PO (13:33)
[2021-09-15 15:58] VITALS: BP 136/59
== END 2021-09-15 17:39 | DRG 853 ==
LOC: ED 13:00 → EDHOLD 14:16 → ICCU 14:16 → EDHOLD 14:27 → ICCU 14:28 → 4E 09-05 15:09 → ICCU 09-09 07:09 → 4E 09-13 15:33
PROVIDERS: Emergency Medicine; Hospitalist; Internal Medicine; Nurse Anesthetist, Certified Registered; ADMIT Family Medicine; ATTEND Family Medicine
PROC: 30233N1 Transfusion of Nonautologous Red Blood Cells into Peripheral Vein, Percutaneous Approach (ICD-10-PCS; 2021-09-02)
PROC: 0DBL8ZX Excision of Transverse Colon, Via Natural or Artificial Opening Endoscopic, Diagnostic (ICD-10-PCS; 2021-09-03)
PROC: 0DB78ZX Excision of Stomach, Pylorus, Via Natural or Artificial Opening Endoscopic, Diagnostic (ICD-10-PCS; 2021-09-03)
PROC: 0DTF0ZZ Resection of Right Large Intestine, Open Approach (ICD-10-PCS; principal; 2021-09-04)
PROC: 0DJD4ZZ Inspection of Lower Intestinal Tract, Percutaneous Endoscopic Approach (ICD-10-PCS; 2021-09-04)
PROC: 02HV33Z Insertion of Infusion Device into Superior Vena Cava, Percutaneous Approach (ICD-10-PCS; 2021-09-04)
PROC: B548ZZA Ultrasonography of Superior Vena Cava, Guidance (ICD-10-PCS; 2021-09-04)
PROC: 05HY33Z Insertion of Infusion Device into Upper Vein, Percutaneous Approach (ICD-10-PCS; 2021-09-09)
PROC: B54NZZA Ultrasonography of Left Upper Extremity Veins, Guidance (ICD-10-PCS; 2021-09-09)
DX: A41.9 Sepsis, unspecified organism (principal); J18.9 Pneumonia, unspecified organism; I50.33 Acute on chronic diastolic (congestive) heart failure; K57.31 Diverticulosis of large intestine without perforation or abscess with bleeding; R65.21 Severe sepsis with septic shock; J96.21 Acute and chronic respiratory failure with hypoxia; N17.0 Acute kidney failure with tubular necrosis; E44.0 Moderate protein-calorie malnutrition; D62 Acute posthemorrhagic anemia; I48.21 Permanent atrial fibrillation; N17.9 Acute kidney failure, unspecified; K56.7 Ileus, unspecified; C18.9 Malignant neoplasm of colon, unspecified; A04.72 Enterocolitis due to Clostridium difficile, not specified as recurrent; J98.11 Atelectasis; I13.0 Hypertensive heart and chronic kidney disease with heart failure and stage 1 through stage 4 chronic kidney disease, or unspecified chronic kidney disease; Z20.822 Contact with and (suspected) exposure to COVID-19; E11.22 Type 2 diabetes mellitus with diabetic chronic kidney disease; N18.32 Chronic kidney disease, stage 3b; E03.9 Hypothyroidism, unspecified; E11.65 Type 2 diabetes mellitus with hyperglycemia; F41.9 Anxiety disorder, unspecified; E83.41 Hypermagnesemia; R19.00 Intra-abdominal and pelvic swelling, mass and lump, unspecified site; I95.9 Hypotension, unspecified; E87.6 Hypokalemia; Z88.2 Allergy status to sulfonamides; Z90.710 Acquired absence of both cervix and uterus; Z90.49 Acquired absence of other specified parts of digestive tract; Z82.49 Family history of ischemic heart disease and other diseases of the circulatory system; Z83.3 Family history of diabetes mellitus; Z80.1 Family history of malignant neoplasm of trachea, bronchus and lung; Z68.36 Body mass index [BMI] 36.0-36.9, adult

== ENCOUNTER 2021-11-21 13:49 | Inpatient (IN) | payer MEDICARE, OTHER ==
[~2021-11-21] VITALS: Ht 165.1 cm; Wt 83.7 kg
[~2021-11-21 13:49] MED LIST changes: +CARAFATE1 G1 PO; +K-TAB20 MEQ PO; +LASIX20 MG PO; +SYNTHROID137 MCG PO; +VANCOMYCIN HCL125 MG PO; +VITAMIN D31250 MCG PO
[2021-11-21 14:05] VITALS: BP 97/44
[2021-11-21] MEDS ORDERED: ZOFRAN4 MG PO (14:18)
[2021-11-21] MEDS ORDERED: CYMBALTA20 M1 PO (14:19)
[2021-11-21] MEDS ORDERED: VISTARIL25 M2 PO (14:20)
[2021-11-21 15:17] LABS: BASO # 0.1 10*3/uL (0.0-0.1); BASO % 0.5 % (0.0-1.0); EOS # 0.3 10*3/uL (0.0-0.4); EOS % 2.2 % (1.0-4.0); HEMATOCRIT 31.8 % (37.0-47.0); LYMPH # 1.4 10*3/uL (1.3-4.4); LYMPH % 10.4 % (27.0-41.0); MEAN CELL VOLUME 87.1 fl (81.0-99.0); MEAN CORPUSCULAR HGB 26.8 pg (27.0-31.0); MEAN CORPUSCULAR HGB CONC 30.8 g/dl (33.0-37.0); MEAN PLATELET VOLUME 8.8 fl (9.6-12.3); MONO # 1.3 10*3/uL (0.1-1.0); MONO % 9.6 % (3.0-9.0); NEUT % 76.8 % (47.0-73.0); PLATELET COUNT AUTOMATED 278 10*3/uL (130-400); RED BLOOD COUNT 3.65 10*6/uL (4.10-5.10); RED CELL DISTRI WIDTH 21.8 % (0-14.5); WHITE BLOOD COUNT 13.1 10*3/uL (4.8-10.8)
[2021-11-21 15:28] LABS: ACT PARTIAL THROMBO TIME 34.8 SECONDS (20.0-32.1); INTERNATIONAL NORM RATIO 1.1 (2.0-3.5)
[2021-11-21 15:29] VITALS: BP 106/58
[2021-11-21 15:32] LABS: CREATININE 2.19 mg/dL (0.55-1.02); POTASSIUM 4.7 mmol/L (3.5-5.1); TOTAL PROTEIN 7.9 gm/dL (6.4-8.2)
[2021-11-21 17:28] VITALS: BP 96/35
[2021-11-21 18:53] LABS: BILIRUBIN Negative (Negative); BLOOD 1+ (Negative); CLARITY Turbid (Clear); COLOR Yellow (Yellow); GLUCOSE Negative (Negative); KETONE Negative (Negative); LEUKO ESTERASE 3+ (Negative); NITRITE Negative (Negative); SPECIFIC GRAVITY 1.015 (1.001-1.030); UROBILINOGEN 0.2 E.U./dl (0.0-1.0)
[2021-11-21 19:34] LABS: BACTERIA 3+; EPITHELIAL CELLS 41-50; RBC 16-20 rbc/hpf (0-2); WBC 31-40 wbc/hpf (0-5)
[2021-11-21] MEDS ORDERED: XARE15TA PO (20:29)
[2021-11-21] MEDS ORDERED: Meclizine25 MG PO (20:30)
[2021-11-21 20:50] VITALS: BP 103/41
[2021-11-21 21:16] VITALS: BP 99/48
[2021-11-21] MEDS ORDERED: NYST SUSP PO (21:43)
[2021-11-21] MEDS ORDERED: MELATONIN5 M1 PO (21:46)
[2021-11-22] VITALS: BP 128/80
[2021-11-22 06:13] LABS: BASO % 0.4 % (0.0-1.0); EOS # 0.4 10*3/uL (0.0-0.4); EOS % 3.8 % (1.0-4.0); HEMATOCRIT 31.9 % (37.0-47.0); LYMPH % 19.9 % (27.0-41.0); MEAN CELL VOLUME 89.1 fl (81.0-99.0); MEAN CORPUSCULAR HGB 27.4 pg (27.0-31.0); MEAN CORPUSCULAR HGB CONC 30.7 g/dl (33.0-37.0); MEAN PLATELET VOLUME 8.8 fl (9.6-12.3); MONO # 1.2 10*3/uL (0.1-1.0); MONO % 12.1 % (3.0-9.0); NEUT # 6.4 10*3/uL (2.3-7.9); NEUT % 63.1 % (47.0-73.0); PLATELET COUNT AUTOMATED 273 10*3/uL (130-400); RED BLOOD COUNT 3.58 10*6/uL (4.10-5.10); WHITE BLOOD COUNT 10.2 10*3/uL (4.8-10.8)
[2021-11-22 06:17] LABS: CREATININE 1.87 mg/dL (0.55-1.02); POTASSIUM 3.8 mmol/L (3.5-5.1); TOTAL PROTEIN 7.7 gm/dL (6.4-8.2)
[2021-11-22 08:00] VITALS: BP 98/63
[2021-11-22 12:00] VITALS: BP 119/51
[2021-11-22 16:00] VITALS: BP 112/55
[2021-11-22 20:00] VITALS: BP 99/45
[2021-11-23] VITALS: BP 111/43
== END 2021-11-23 01:35 | disposition short-term general hospital (02) | DRG 871 ==
LOC: ED 13:49 → EDHOLD 18:51 → 5E 20:07
PROVIDERS: Emergency Medicine; Internal Medicine; ADMIT Family Medicine; ATTEND Family Medicine
DX: A41.9 Sepsis, unspecified organism (principal); N17.0 Acute kidney failure with tubular necrosis; G93.41 Metabolic encephalopathy; N39.0 Urinary tract infection, site not specified; E87.0 Hyperosmolality and hypernatremia; E44.1 Mild protein-calorie malnutrition; I13.0 Hypertensive heart and chronic kidney disease with heart failure and stage 1 through stage 4 chronic kidney disease, or unspecified chronic kidney disease; N18.30 Chronic kidney disease, stage 3 unspecified; E11.22 Type 2 diabetes mellitus with diabetic chronic kidney disease; E03.9 Hypothyroidism, unspecified; R31.9 Hematuria, unspecified; D64.9 Anemia, unspecified; E87.8 Other disorders of electrolyte and fluid balance, not elsewhere classified; R65.20 Severe sepsis without septic shock; Z88.2 Allergy status to sulfonamides; Z90.710 Acquired absence of both cervix and uterus; Z90.49 Acquired absence of other specified parts of digestive tract; Z87.891 Personal history of nicotine dependence; Z80.1 Family history of malignant neoplasm of trachea, bronchus and lung; Z83.3 Family history of diabetes mellitus; Z82.49 Family history of ischemic heart disease and other diseases of the circulatory system; Z79.4 Long term (current) use of insulin; Z68.30 Body mass index [BMI] 30.0-30.9, adult; R56.9 Unspecified convulsions; I48.91 Unspecified atrial fibrillation

== ENCOUNTER 2022-09-20 09:23 | Emergency (ER) | payer MEDICARE, OTHER ==
[~2022-09-20] VITALS: Wt 86.2 kg
[~2022-09-20 09:23] MED LIST changes: +CYMBALTA20 M1 PO; +MELATONIN5 M1 PO; +Meclizine25 MG PO; +NYST SUSP PO; +VISTARIL25 M2 PO; +XARE15TA PO; +ZOFRAN4 MG PO
[2022-09-20] MEDS ORDERED: DICLOFENAC SOD100 G1 T (09:44)
[2022-09-20] MEDS ORDERED: QUETIAPINE FUMA25 MG PO (09:45)
== END 2022-09-20 12:40 ==
LOC: ED 09:23
DX: T39.391A Poisoning by other nonsteroidal anti-inflammatory drugs [NSAID], accidental (unintentional), initial encounter (principal); I25.10 Atherosclerotic heart disease of native coronary artery without angina pectoris; I48.91 Unspecified atrial fibrillation; I50.9 Heart failure, unspecified; I11.0 Hypertensive heart disease with heart failure; E11.9 Type 2 diabetes mellitus without complications; F32.A Depression, unspecified; Z88.2 Allergy status to sulfonamides; Z90.710 Acquired absence of both cervix and uterus; Z90.49 Acquired absence of other specified parts of digestive tract; Z98.890 Other specified postprocedural states; Z87.891 Personal history of nicotine dependence; Y92.129 Unspecified place in nursing home as the place of occurrence of the external cause

== ENCOUNTER 2024-03-04 08:48 | Inpatient (IN) | payer MEDICARE, MEDICAID ==
[~2024-03-04] VITALS: Ht 165.1 cm; Wt 100.0 kg
[2024-03-04] VITALS (8 sets, daily range): BP systolic 101–137; BP diastolic 49–72
[~2024-03-04 08:48] MED LIST changes: +AMOXICILLIN500 M2 PO; +B121000 MCG/1 IM; +CETIRIZINE10 MG PO; +DICLOFENAC SOD100 G1 T; +EXELON1 EAC1 T; +EXELON1 EAC1 TD; +EXELON1 EACH T; +FEROSUL325 MG PO; +HYDROXYZINE HCL50 MG PO; +KAPSPARGO SPRIN50 MG PO; +LEVOFLOXACIN750 M2 PO; +LOPERAMIDE HCL2 MG PO; +MECLIZINE HCL25 M2 PO; +METRONIDAZOLE500 M1 PO; +MILK OF MA400 MG/5 M PO; +MIRALAX POWDER17 G1 PO; +MUCINEX ER600 MG PO; +OMNICEF300 MG PO; +ONDANSETRON4 MG SL; +QUETIAPINE FUMA25 MG PO; +REMERON SOLTAB45 MG PO; +REMERON15 M2 PO; +RISPERDAL0.5 MG PO; +RIVASTIGMINE1 EACH TD; +TOPCARE ARTHRI650 MG PO; +VISTARIL25 MG PO; +VITAMIN B121000 MC3 PO; +VITAMIN B650 M1 PO
[2024-03-04 09:17] LABS: BASO % 0.3 % (0.0-1.0); EOS # 0.2 10*3/uL (0.0-0.4); EOS % 2.6 % (1.0-4.0); HEMATOCRIT 29.6 % (37.0-47.0); LYMPH # 1.5 10*3/uL (1.3-4.4); LYMPH % 16.8 % (27.0-41.0); MEAN CELL VOLUME 105.7 fl (81.0-99.0); MEAN CORPUSCULAR HGB 32.1 pg (27.0-31.0); MEAN CORPUSCULAR HGB CONC 30.4 g/dl (33.0-37.0); MEAN PLATELET VOLUME 8.7 fl (9.6-12.3); MONO # 1.1 10*3/uL (0.1-1.0); MONO % 11.5 % (3.0-9.0); NEUT # 6.2 10*3/uL (2.3-7.9); PLATELET COUNT AUTOMATED 246 10*3/uL (130-400); RED CELL DISTRI WIDTH 14.1 % (0-14.5); WHITE BLOOD COUNT 9.2 10*3/uL (4.8-10.8)
[2024-03-04] MEDS ORDERED: FUROSEMIDE 40 MG/4 ML VIAL IV ONE (09:45)
[2024-03-04 10:06] LABS: POTASSIUM 3.8 mmol/L (3.4-5.1)
[2024-03-04 10:10] LABS: ACT PARTIAL THROMBO TIME 28.6 SECONDS (20.0-32.1)
[2024-03-04] MEDS ORDERED: Acetaminophen/Hydrocodone 5 MG/325 MG TABLET PO PRN (13:20)
[2024-03-04] MEDS ORDERED: Ondansetron Hydrochloride 4 MG/2 ML VIAL IV PRN (13:20)
[2024-03-04] MEDS ORDERED: ACETAMINOPHEN 325 MG TAB PO PRN (13:20)
[2024-03-04] MEDS ORDERED: BISACODYL 10 MG SUPP R PRN (13:20)
[2024-03-04] MEDS ORDERED: Magnesium Hydroxide 30 ML UDC PO PRN (13:20)
[2024-03-04] MEDS ORDERED: ACETAMINOPHEN 650 MG SUPP R PRN (13:20)
[2024-03-04] MEDS ORDERED: BISACODYL 5 MG TAB PO PRN (13:20)
[2024-03-04] MEDS ORDERED: METOPROLOL SUCCINATE XR 50 MG TAB PO SCH (13:35)
[2024-03-04] MEDS ORDERED: FUROSEMIDE 40 MG/4 ML VIAL IV SCH (18:00)
[2024-03-04] MEDS ORDERED: hydrOXYzine pamoate 25 MG CAP PO PRN (22:40)
[2024-03-04] MEDS ORDERED: Polyethylene Glycol 3350 17 GM PACKET PO PRN (22:40)
[2024-03-04] MEDS ORDERED: Melatonin 5 MG TABLET PO PRN (22:40)
[2024-03-05] VITALS: BP 106/57
[2024-03-05] MEDS ORDERED: Levothyroxine Sodium 137 MCG TABLET PO SCH (06:00)
[2024-03-05 06:44] LABS: BASO % 0.3 % (0.0-1.0); EOS # 0.3 10*3/uL (0.0-0.4); EOS % 2.7 % (1.0-4.0); HEMATOCRIT 31.6 % (37.0-47.0); LYMPH % 17.3 % (27.0-41.0); MEAN CELL VOLUME 104.6 fl (81.0-99.0); MEAN CORPUSCULAR HGB 32.8 pg (27.0-31.0); MEAN CORPUSCULAR HGB CONC 31.3 g/dl (33.0-37.0); MEAN PLATELET VOLUME 9.8 fl (9.6-12.3); MONO # 1.4 10*3/uL (0.1-1.0); NEUT # 7.7 10*3/uL (2.3-7.9); NEUT % 67.2 % (47.0-73.0); PLATELET COUNT AUTOMATED 268 10*3/uL (130-400); RED BLOOD COUNT 3.02 10*6/uL (4.10-5.10); RED CELL DISTRI WIDTH 14.2 % (0-14.5); WHITE BLOOD COUNT 11.5 10*3/uL (4.8-10.8)
[2024-03-05 06:50] LABS: BUN 10 mg/dl (9-23); CHLORIDE 96 mmol/L (98-107); POTASSIUM 3.5 mmol/L (3.4-5.1)
[2024-03-05] MEDS ORDERED: Pantoprazole Sodium 40 MG TAB PO SCH (07:30)
[2024-03-05 08:00] VITALS: BP 142/70
[2024-03-05] MEDS ORDERED: Meclizine Hydrochloride 25 MG TAB PO SCH (10:00)
[2024-03-05] MEDS ORDERED: RISPERIDONE 0.5 MG TAB PO SCH (10:00)
[2024-03-05] MEDS ORDERED: Rivastigmine Tartrate 9.5 MG/24 HR PATCH T SCH (10:00)
[2024-03-05] MEDS ORDERED: RIVAROXABAN 15 MG TAB PO SCH (10:00)
[2024-03-05] MEDS ORDERED: GUAIFENESIN 600 MG TAB ER PO SCH (10:00)
[2024-03-05] MEDS ORDERED: MAGNESIUM SULFATE 50 ML IV ONE (10:10)
[2024-03-05 12:00] VITALS: BP 101/51
[2024-03-05 16:00] VITALS: BP 111/46
[2024-03-05 20:00] VITALS: BP 118/50
[2024-03-05] MEDS ORDERED: MAGNESIUM OXIDE 400 MG TAB PO SCH (20:35)
[2024-03-05] MEDS ORDERED: Mirtazapine 15 MG TAB PO SCH (22:00)
[2024-03-06] VITALS: BP 120/54
[2024-03-06 06:37] LABS: BASO % 0.3 % (0.0-1.0); EOS # 0.4 10*3/uL (0.0-0.4); EOS % 3.1 % (1.0-4.0); HEMATOCRIT 31.4 % (37.0-47.0); LYMPH # 1.7 10*3/uL (1.3-4.4); MEAN CELL VOLUME 105.7 fl (81.0-99.0); MEAN CORPUSCULAR HGB 32.3 pg (27.0-31.0); MEAN CORPUSCULAR HGB CONC 30.6 g/dl (33.0-37.0); MEAN PLATELET VOLUME 9.3 fl (9.6-12.3); MONO # 1.3 10*3/uL (0.1-1.0); NEUT # 8.1 10*3/uL (2.3-7.9); NEUT % 70.2 % (47.0-73.0); PLATELET COUNT AUTOMATED 271 10*3/uL (130-400); RED BLOOD COUNT 2.97 10*6/uL (4.10-5.10); WHITE BLOOD COUNT 11.5 10*3/uL (4.8-10.8)
[2024-03-06 06:43] LABS: BUN 14 mg/dl (9-23); CHLORIDE 94 mmol/L (98-107); POTASSIUM 3.4 mmol/L (3.4-5.1)
[2024-03-06 08:00] VITALS: BP 99/43
[2024-03-06] MEDS ORDERED: PREPARATION H SRF/SHARK LIVER 1 OZ TUBE R SCH (10:00)
[2024-03-06 12:00] VITALS: BP 108/53
[2024-03-06] MEDS ORDERED: MICONAZOLE NITRATE 2% 75 GM BOT T SCH (22:00)
== END 2024-03-06 14:15 | DRG 291 ==
LOC: ED 08:48 → EDHOLD 10:41 → ICCU 18:34
PROVIDERS: Emergency Medicine; Internal Medicine; Student in an Organized Health Care Education/Training Program; ADMIT Student in an Organized Health Care Education/Training Program; ATTEND Student in an Organized Health Care Education/Training Program
DX: I13.0 Hypertensive heart and chronic kidney disease with heart failure and stage 1 through stage 4 chronic kidney disease, or unspecified chronic kidney disease (principal); I50.33 Acute on chronic diastolic (congestive) heart failure; J96.01 Acute respiratory failure with hypoxia; I48.91 Unspecified atrial fibrillation; F41.9 Anxiety disorder, unspecified; E11.22 Type 2 diabetes mellitus with diabetic chronic kidney disease; N18.30 Chronic kidney disease, stage 3 unspecified; E78.5 Hyperlipidemia, unspecified; E03.9 Hypothyroidism, unspecified; D53.9 Nutritional anemia, unspecified; E11.69 Type 2 diabetes mellitus with other specified complication; S41.102A Unspecified open wound of left upper arm, initial encounter; E11.65 Type 2 diabetes mellitus with hyperglycemia; E83.42 Hypomagnesemia; Z88.2 Allergy status to sulfonamides; Z79.899 Other long term (current) drug therapy; Z79.01 Long term (current) use of anticoagulants; Z79.2 Long term (current) use of antibiotics; Z90.710 Acquired absence of both cervix and uterus; Z90.49 Acquired absence of other specified parts of digestive tract; Z87.891 Personal history of nicotine dependence; Z80.1 Family history of malignant neoplasm of trachea, bronchus and lung; Z83.3 Family history of diabetes mellitus; Z82.49 Family history of ischemic heart disease and other diseases of the circulatory system; Z79.1 Long term (current) use of non-steroidal anti-inflammatories (NSAID); X58.XXXA Exposure to other specified factors, initial encounter; Y93.89 Activity, other specified; Y92.89 Other specified places as the place of occurrence of the external cause; Y99.8 Other external cause status